=== PATIENT | female | born 1950 | race Caucasian/White ===

== ENCOUNTER 2016-08-11 13:41 | Emergency (ER) | payer OTHER ==
[2016-08-11] MEDS ORDERED: NS 1,000 ML IV ONE (13:50)
--- NOTE | 2016-08-11 13:50 | EDPHY ---
H & P Time Seen by Provider: 08/11/16 13:49 HPI/ROS: CHIEF COMPLAINT: Chills, bilateral flank pain, foul-smelling urine HISTORY OF PRESENT ILLNESS: The patient presents to the ED with 2 days of chills, bilateral flank pain, foul-smelling urine and reportedly or low-grade fever. The patient has a history of a complicated urinary tract infection x2 in September 2015. The patient was hospitalized for symptoms of fever and dysuria approximately 2 weeks ago. At that point time she had a low colony count of E coli which was treated with meropenem and ultimately bladder irrigation with gentamicin. The patient stopped her gentamicin bladder irrigation a week ago. The patient denies any vomiting or diarrhea. The patient also has a history of bronchiectasis. The patient denies any acute chest pain or shortness of breath. She denies any acute cough. REVIEW OF SYSTEMS: A comprehensive 10 point review of systems is otherwise negative aside from elements mentioned in the history of present illness. Source: Patient - Physical Exam Exam: General Appearance: Alert, no distress Eyes: Pupils equal and round no pallor or injection ENT, Mouth: Mucous membranes moist Respiratory: There are no retractions, lungs are clear to auscultation Cardiovascular: Regular rate and rhythm Gastrointestinal: Minimal lower abdominal tenderness, bilateral in nature, no CVA tenderness Neurological: A&O, normal motor function, normal sensory exam, normal cranial nerves Skin: Warm and dry, no rashes Musculoskeletal: Neck is supple nontender Extremities: symmetrical, full range of motion Constitutional: Initial Vital Signs Temperature (C) 37.2 C 08/11/16 13:47 Heart Rate 93 08/11/16 13:47 Respiratory Rate 18 08/11/16 13:47 Blood Pressure 130/90 H 08/11/16 13:47 O2 Sat (%) 93 08/11/16 13:47 O2 Delivery Mode Room Air Allergies/Adverse Reactions: Cephalosporins Allergy (Verified 08/11/16 16:47) Anaphylaxis levofloxacin [From Levaquin] Allergy (Verified 08/11/16 16:47) Other-Enter Comments nitrofurantoin [From Macrobid] Allergy (Verified 08/11/16 16:47) Other-Enter Comments Penicillins Allergy (Verified 08/11/16 16:47) Hives Sulfa (Sulfonamide Antibiotics) Allergy (Verified 08/11/16 16:47) Hives Home Medications: Medication Instructions Recorded Dexilant 08/11/16 Doxycycline Hyclate [Vibramycin 100 mg PO BID #20 cap 08/11/16 100 MG (*)] Dulera 100 Mcg/5 Mcg Inhaler 08/11/16 Estrogel 08/11/16 Zoloft 50mg (*) 08/11/16 Medical Decision Making ED Course/Re-evaluation: The patient presents to the ED with symptoms consistent with recurrent cystitis. She is afebrile in the emergency department. She has no significant leukocytosis. The patient has multiple medication allergies. The patient can take ciprofloxacin. She received 400 mg of IV Cipro. The patient will be started on this medication orally. The urine culture has been obtained. The patient is comfortable being discharged home and returning to the ED for any symptoms of fever, vomiting, worsening pain or other concerns. Differential Diagnosis: Differential diagnosis considered includes pyelonephritis, nephrolithiasis, ureterolithiasis, sepsis - Data Points Laboratory Results: Laboratory Results 08/11/16 14:23 08/11/16 14:23 08/11/16 08/11/16 08/11/16 14:23 14:23 14:23 WBC 7.63 10^3/uL 10^3/uL (3.80-9.50) RBC 4.95 10^6/uL 10^6/uL (4.18-5.33) Hgb 15.0 g/dL g/dL (12.6-16.3) Hct 45.1 % % (38.0-47.0) MCV 91.1 fL fL (81.5-99.8) MCH 30.3 pg pg (27.9-34.1) MCHC 33.3 g/dL g/dL (32.4-36.7) RDW 13.4 % % (11.5-15.2) Plt Count 158 10^3/uL 10^3/uL (150-400) MPV 9.2 fL fL (8.7-11.7) Neut % (Auto) 74.5 % H % (39.3-74.2) Lymph % (Auto) 13.6 % L % (15.0-45.0) [place] % (Auto) 9.2 % % (4.5-13.0) Eos % (Auto) 2.1 % % (0.6-7.6) Baso % (Auto) 0.3 % % (0.3-1.7) Nucleat RBC Rel Count 0.0 % % (0.0-0.2) Absolute Neuts (auto) 5.69 10^3/uL 10^3/uL (1.70-6.50) Absolute Lymphs (auto) 1.04 10^3/uL 10^3/uL (1.00-3.00) Absolute Monos (auto) 0.70 10^3/uL 10^3/uL (0.30-0.80) Absolute Eos (auto) 0.16 10^3/uL 10^3/uL (0.03-0.40) Absolute Basos (auto) 0.02 10^3/uL 10^3/uL (0.02-0.10) Absolute Nucleated RBC 0.00 10^3/uL 10^3/uL (0-0.01) Immature Gran % 0.3 % % (0.0-1.1) Immature Gran # 0.02 10^3/uL 10^3/uL (0.00-0.10) Sodium 140 mEq/L mEq/L (134-144) Potassium 3.8 mEq/L mEq/L (3.5-5.2) Chloride 105 mEq/L mEq/L (97-110) Carbon Dioxide 24 mEq/l mEq/l (22-31) Anion Gap 11 mEq/L mEq/L (8-16) BUN 13 mg/dL mg/dL (7-23) Creatinine 0.6 mg/dL mg/dL (0.6-1.0) Estimated GFR > 60 Glucose 105 mg/dL H mg/dL (70-100) Calcium 9.1 mg/dL mg/dL (8.5-10.4) Urine Color PALE YELLOW Urine Appearance CLEAR Urine pH 6.0 (5.0-7.5) Ur Specific [place] 1.003 (1.002-1.030) Urine Protein NEGATIVE (NEGATIVE) Urine Ketones NEGATIVE (NEGATIVE) Urine Blood 3+ H (NEGATIVE) Urine Nitrate NEGATIVE (NEGATIVE) Urine Bilirubin NEGATIVE (NEGATIVE) Urine Urobilinogen NEGATIVE EU EU (0.2-1.0) Ur Leukocyte Esterase 3+ H (NEGATIVE) Urine RBC 1-3 /hpf /hpf (0-3) Urine WBC 50-182 /hpf H /hpf (0-3) Ur Epithelial Cells TRACE /lpf /lpf (NONE-1+) Urine Bacteria TRACE /hpf H /hpf (NONE SEEN) Urine Mucus TRACE /lpf /lpf (NONE-1+) Urine Glucose NEGATIVE (NEGATIVE) Medications Given: Discontinued Medications Sodium Chloride (Ns) 1,000 mls @ 0 mls/hr IV ONCE ONE; Wide Open PRN Reason: Protocol Stop: 08/11/16 13:51 Last Admin: 08/11/16 14:38 Dose: 1,000 mls Departure - Departure Disposition: Home, Routine, Self-Care Clinical Impression: Acute cystitis Condition: Good Instructions: Urinary Tract Infection in Women (ED) Additional Instructions: 1. Please contact the emergency department in 2 days to check the results of your urine culture. 2. Return to the ED for increasing pain, fever, vomiting or other concerns. 3. Please take ciprofloxacin as directed for next 10 days Referrals: MIGUELITO IRVING [Other] - As per Instructions Prescriptions: Doxycycline Hyclate [Vibramycin 100 MG (*)] 100 mg PO BID #20 cap
[2016-08-11 14:29] LABS: % IMMATURE GRANULYOCYTES 0.3 % (0.0-1.1); ABSOLUTE IMMATURE GRANULOCYTES 0.02 10^3/uL (0.00-0.10); ADD DIFF? NO; ADD MORPH? NO; ADD SCAN? NO; ATYPICAL LYMPHOCYTE FLAG 0 (0-99); FRAGMENT RBC FLAG 0 (0-99); HEMATOCRIT 45.1 % (38.0-47.0); LEFT SHIFT FLG 0 (0-99); LIPEMIA HEMOLYSIS FLAG 80 (0-99); MEAN CELL HEMOGLOBIN 30.3 pg (27.9-34.1); MEAN CELL HEMOGLOBIN CONCENTR. 33.3 g/dL (32.4-36.7); MEAN CELL VOLUME 91.1 fL (81.5-99.8); MEAN PLATELET VOLUME 9.2 fL (8.7-11.7); PLATELET CLUMPS FLAG 0 (0-99); PLATELET COUNT 158 10^3/uL (150-400); RED BLOOD CELL COUNT 4.95 10^6/uL (4.18-5.33); RED CELL DISTRIBUTION WIDTH 13.4 % (11.5-15.2)
[2016-08-11 14:33] LABS: COLOR PALE YELLOW; LEUKOCYTE ESTERASE,URINE 3+ (NEGATIVE); NITRITE,URINE NEGATIVE (NEGATIVE)
[2016-08-11 14:43] LABS: ANION GAP 11 mEq/L (8-16); CALCIUM 9.1 mg/dL (8.5-10.4); CARBON DIOXIDE 24 mEq/l (22-31); CHLORIDE 105 mEq/L (97-110); CREATININE 0.6 mg/dL (0.6-1.0); GLOMERULAR FILTRATION RATE > 60; GLUCOSE 105 mg/dL (70-100); POTASSIUM 3.8 mEq/L (3.5-5.2); SODIUM 140 mEq/L (134-144)
[2016-08-11 15:14] LABS: BACTERIA TRACE /hpf (NONE SEEN); MUCUS TRACE /lpf (NONE-1+); WBC,URINE 50-182 /hpf (0-3)
[2016-08-11] MEDS ORDERED: CIPROFLOXACIN 400 MG/DEXTROSE/200 ML BAG IV ONE (16:14)
[2016-08-11] MEDS ORDERED: DOXYCYCLINE HYCLATE 100 MG CAP/TAB PO ONE (16:35)
[2016-08-11] MEDS ORDERED: CIPROFLOXACIN 400 MG/DEXTROSE 200 ML IV ONE (16:46)
[2016-08-11] MEDS ORDERED: ACETAMINOPHEN 500 MG TAB ONE (17:41)
[2016-08-11 18:01] VITALS: BP 132/67; PULSE 76; RESP 14; TEMP 98.7; O2SAT 98
== END 2016-08-11 17:58 | disposition home or self-care (01) ==
DX: N30.00 Acute cystitis without hematuria (principal); B96.20 Unspecified Escherichia coli [E. coli] as the cause of diseases classified elsewhere
CPT/HCPCS: 96374; J0744